=== PATIENT | male | born 1975 ===

== ENCOUNTER 2019-10-20 20:59 | Inpatient (IN) | payer OTHER | END 2019-10-25 11:45 | disposition home or self-care (01) | DRG 392 | LOC: ER 20:59 → MEDI 10-21 11:30 | PROVIDERS: ADMIT Internal Medicine | DX: K57.32 Diverticulitis of large intestine without perforation or abscess without bleeding (principal); I10 Essential (primary) hypertension; E78.00 Pure hypercholesterolemia, unspecified ==